=== PATIENT | female | born 1980 | race African-American/Black ===

== ENCOUNTER 2017-09-30 12:14 | Emergency (ER) | payer MEDICAID ==
[2016-03-24 09:40] VITALS: BMI 39.7
[~2017-09-30 12:14] MED LIST: FEOSOL LIQ300 MG/5 M PO; FLINTSTONE1 TAB.CHEW PO; IBUPROFEN600 MG PO; NORCO 7.5/325 T1 TA1; PERCOCET 5-3251 TAB PO; TYLENOL W/CODEI1 TAB; ZOLOFT50 MG PO
[2017-09-30 16:00] LABS: APPEARANCE HAZY (CLEAR); BILIRUBIN NEGATIVE (NEGATIVE); COLOR YELLOW (YELLOW); GLUCOSE NEGATIVE (NEGATIVE); KETONE NEGATIVE (NEGATIVE); NITRITE NEGATIVE (NEGATIVE); PROTEIN NEGATIVE (NEGATIVE); SPECIFIC GRAVITY 1.015 (1.005-1.020); UROBILINOGEN NORMAL (NORMAL)
[2017-09-30 16:02] LABS: BACTERIA MODERATE /hpf (NONE SEEN)
[2017-09-30 16:03] LABS: AMORPHOUS SEDIMENT <1+ /lpf (NONE SEEN)
== END 2017-09-30 15:30 | disposition home or self-care (01) ==
LOC: D.ER 12:14
PROVIDERS: Physician Assistant
DX: M54.16 Radiculopathy, lumbar region (principal)

== ENCOUNTER 2019-02-12 13:23 | Emergency (ER) | payer MEDICAID ==
[~2019-02-12] VITALS: Ht 162.6 cm; Wt 103.2 kg
[2019-02-12 13:34] VITALS: Ht 162.6 cm; Wt 103.2 kg
[2019-02-12 13:56] LABS: APPEARANCE CLEAR (CLEAR); BILIRUBIN NEGATIVE (NEGATIVE); COLOR STRAW (YELLOW); GLUCOSE NEGATIVE (NEGATIVE); KETONE NEGATIVE (NEGATIVE); NITRITE NEGATIVE (NEGATIVE); PROTEIN NEGATIVE (NEGATIVE); SPECIFIC GRAVITY 1.015 (1.005-1.020); UROBILINOGEN NORMAL (NORMAL)
[2019-02-12] MEDS ORDERED: VOLTAREN75 MG PO (14:16)
[2019-02-12] MEDS ORDERED: ALBUTEROL SULF8.5 GM INH (14:16)
[2019-02-12] MEDS ORDERED: BACLOFEN20 M1 PO (14:16)
[2019-02-12 14:49] VITALS: BP 116/68
== END 2019-02-12 14:50 | disposition home or self-care (01) ==
LOC: D.ER 13:23
PROVIDERS: Family Medicine
DX: M54.5 Low back pain (principal); Z87.09 Personal history of other diseases of the respiratory system

== ENCOUNTER 2019-03-07 22:54 | Emergency (ER) | payer MEDICAID ==
[~2019-03-07] VITALS: Ht 162.6 cm; Wt 103.8 kg
[~2019-03-07 22:54] MED LIST changes: +ALBUTEROL SULF8.5 GM INH; +BACLOFEN20 M1 PO; +VOLTAREN75 MG PO
[2019-03-07 22:59] VITALS: Ht 162.6 cm; Wt 103.8 kg
[2019-03-07 23:39] LABS: HEMATOCRIT 31.7 % (36.0-48.0); HEMOGLOBIN 10.2 g/dL (12-16); LYMPHOCYTES 37.5 % (15-50); MCH 27.3 pg (26.0-34.0); MCHC 32.2 g/dL (31.0-37.0); MCV 84.8 fL (80.0-100.0); MEAN PLATELET VOLUME 10.3 fL (7.4-10.4); PLATELET COUNT 188 10x3/uL (130-400); RBC 3.74 10x6/uL (4.00-5.40); RDW 13.9 % (11.5-14.5); WBC 6.7 10x3/uL (4.8-10.8)
[2019-03-07 23:44] LABS: APTT 27.2 SECONDS (22.8-39.4); INR 1.03 (0.85-1.17)
[2019-03-07 23:56] LABS: ALBUMIN 3.6 g/dL (3.4-5.0); ALKALINE PHOSPHATASE 49 U/L (46-116); ALT (SGPT) 29 U/L (10-68); BILIRUBIN - TOTAL 0.15 mg/dL (0.2-1.3); CALC OSMOLALITY 275 mosm/kg (275-300); CALCIUM 8.7 mg/dL (8.5-10.1); CARBON DIOXIDE 26.4 mmol/L (21.0-32.0); CHLORIDE - SERUM 103 mmol/L (98-107); CREATININE - SERUM 0.8 mg/dL (0.6-1.3); GLUCOSE 93 mg/dL (74-106); POTASSIUM - SERUM 3.2 mmol/L (3.5-5.1); PROTEIN - SERUM 7.4 g/dL (6.4-8.2); SODIUM 138 mmol/L (136-145); UREA NITROGEN 12 mg/dL (7-18); eGFR NON AFRICAN AMERICAN 85 mL/min (90-120)
[2019-03-08 00:07] LABS: CKMB 0.3 U/L (0.0-3.6); CREATINE KINASE 102 UL (21-215); MAGNESIUM - SERUM 1.6 mg/dL (1.8-2.4)
[2019-03-08 00:10] LABS: TROPONIN-I < 0.017 ng/mL (0.000-0.060)
[2019-03-08 02:10] LABS: CKMB 0.3 U/L (0.0-3.6); CREATINE KINASE 114 UL (21-215)
[2019-03-08 02:12] LABS: TROPONIN-I < 0.017 ng/mL (0.000-0.060)
[2019-03-08] MEDS ORDERED: SKELAXIN800 MG PO (03:10)
[2019-03-08] MEDS ORDERED: NAPROSYN500 MG PO (03:10)
[2019-03-08 03:11] VITALS: BP 151/85
== END 2019-03-08 03:20 | disposition home or self-care (01) ==
LOC: D.ER 22:54
PROVIDERS: Family Medicine
DX: R07.89 Other chest pain (principal); M54.12 Radiculopathy, cervical region; S29.011A Strain of muscle and tendon of front wall of thorax, initial encounter; X58.XXXA Exposure to other specified factors, initial encounter; Y93.89 Activity, other specified; Y92.89 Other specified places as the place of occurrence of the external cause